=== PATIENT | female | born 1965 | race American Indian/Alaskan Native ===

== ENCOUNTER 2017-01-20 21:06 | Emergency (ER) | payer BC, OTHER ==
[2017-01-20] MEDS ORDERED: Codeine/Promethazine 10-6.25 MG/5 ML Syrup 5 ML UD Cup PO ONE ×2 (21:42→23:34)
[2017-01-20] MEDS ORDERED: Ketorolac 30 MG/ML SDV IM ONE (21:42)
[2017-01-20] MEDS ORDERED: methylPREDNISolone Sodium Succinate 125 MG/2 ML SDV IM ONE (21:42)
[2017-01-20] MEDS ORDERED: Albuterol/Ipratropium 3.0-0.5 MG/3 ML Neb Soln NEB ONE ×2 (21:42→22:39)
--- NOTE | 2017-01-20 21:45 | EDM.PDOC ---
ED HPI GENERAL MEDICAL PROBLEM - General Chief Complaint: ENT Problem Stated Complaint: COUGH, DIFFICULTY BREATHING Time Seen by Provider: 01/20/17 21:43 Source of Information: Reports: Patient History Limitations: Reports: No Limitations - History of Present Illness INITIAL COMMENTS - FREE TEXT/NARRATIVE: Sx since Saturday with cough headache head congestion sinus congestion occ' dizziness. Headache Pain Score (Numeric/FACES): 8 - Related Data Allergies Allergy/AdvReac Type Severity Reaction Status Date / Time Penicillins Allergy Intermediate Hives Verified 01/20/17 21:43 bupropion HCl Allergy Cannot Verified 12/15/15 07:23 [From Wellbutrin] Remember cephalexin Allergy Cannot Verified 01/20/17 21:43 Remember clindamycin Allergy Cannot Verified 01/20/17 21:43 Remember Home Meds: Home Meds Cyclobenzaprine HCl [Cyclobenzaprine HCl] 5 mg PO DAILY 08/07/14 [History] Gabapentin [Neurontin] 300 mg PO DAILY 08/07/14 [History] Ibuprofen [Ibuprofen] 600 mg PO DAILY 10/05/15 [History] Calcium Carbonate/Vitamin D3 [Calcium 600 + Vit D3 800 Tab] 1 tab PO DAILY 12/13 [History] Multivitamin [Multivitamins] 1 each PO DAILY 12/14/15 [History] Cholecalciferol (Vitamin D3) [Vitamin D3] 1 tab PO DAILY 01/20/17 [History] Past Medical History HEENT History: Reports: Impaired Vision Cardiovascular History: Reports: None Respiratory History: Reports: None Gastrointestinal History: Reports: None Other Gastrointestinal History: rectal bleed Genitourinary History: Reports: None [employer] History: Reports: Musculoskeletal History: Reports: Back Pain, Chronic, Other (See Below) Other Musculoskeletal History: DJD Neurological History: Reports: None Psychiatric History: Reports: Addiction Other Psychiatric History: Tobacco habituation Endocrine/Metabolic History: Reports: None Hematologic History: Reports: None Immunologic History: Reports: None Oncologic (Cancer) History: Reports: None Dermatologic History: Reports: None - Infectious Disease History Infectious Disease History: Reports: Chicken Pox - Past Surgical History HEENT Surgical History: Reports: None Cardiovascular Surgical History: Reports: None Female Surgical History: Reports: Hysterectomy Social & Family History - Family History Family Medical History: Noncontributory - Tobacco Use Smoking Status *Q: Current Every Day Smoker Years of Tobacco use: 35 Packs/Tins Daily: 0.5 Second Hand Smoke Exposure: Yes - Alcohol Use Days Per Week of Alcohol Use: 0 - Recreational Drug Use Recreational Drug Use: No - Living Situation & Occupation Living situation: Reports: with Family Occupation: Employed ED ROS ENT - Review of Systems Review Of Systems: ROS reveals no pertinent complaints other than HPI. ED EXAM, ENT - Physical Exam Exam: See Below Exam Limited By: No Limitations General Appearance: Alert, WD/WN, Mild Distress, Other (cough spasms) Eye Exam: Bilateral Eye: PERRL (pupils ess ER @ 4mm) Ears: Hearing Grossly Normal, TM Dullness Nose: Clear Rhinorrhea Mouth/Throat: Normal Inspection, Normal Oropharynx Head: Atraumatic Neck: Non-Tender, Full Range of Motion Respiratory/Chest: No Respiratory Distress, No Accessory Muscle Use, Decreased Breath Sounds, Rales, Rhonchi, Wheezing. No: Accessory Muscle Use, Retractions , Splinting Cardiovascular: Regular Rate, Rhythm GI/Abdominal: Soft, Non-Tender Neurological: Alert, Oriented, Normal Cognition, Normal Gait, No Motor/Sensory Deficits Psychiatric: Tearful Skin: Warm, Dry Lymphatic: No Adenopathy Course - Vital Signs Last Recorded V/S: Last Vital Signs Temp 36.6 C 01/20/17 22:30 Pulse 78 01/20/17 22:30 Resp 16 01/20/17 21:36 BP 120/82 01/20/17 22:30 Pulse Ox 97 01/20/17 21:36 - Orders/Labs/Meds Orders: Active Orders 24 hr Category Date Time Status RT Aerosol Therapy [RC] ASDIRECTED Care 01/20/17 21:43 Active RT Aerosol Therapy [RC] ASDIRECTED Care 01/20/17 22:39 Active Chest 2V [CR] Urgent Exams 01/20/17 22:17 Taken Meds: Medications Discontinued Medications Generic Name Dose Route Start Last Admin Trade Name Freq PRN Reason Stop Dose Admin Albuterol/Ipratropium 3 ml 01/20/17 21:42 01/20/17 21:55 Duoneb 3.0-0.5 Mg/3 Ml NEB 01/20/17 21:43 3 ml ONETIME ONE Administration Albuterol/Ipratropium 3 ml 01/20/17 22:39 Duoneb 3.0-0.5 Mg/3 Ml NEB 01/20/17 22:40 ONETIME ONE Benzonatate 100 mg 01/20/17 22:39 Tessalon Perles PO 01/20/17 22:40 ONETIME ONE Ketorolac Tromethamine 30 mg 01/20/17 21:42 01/20/17 21:51 Toradol IM 01/20/17 21:43 30 mg ONETIME ONE Administration Methylprednisolone Sodium Succinate 125 mg 01/20/17 21:42 01/20/17 21:52 Solu-Medrol IM 01/20/17 21:43 125 mg ONETIME ONE Administration Promethazine HCl/Codeine 5 ml 01/20/17 21:42 01/20/17 21:50 Phenergan With Codeine PO 01/20/17 21:43 5 ml ONETIME ONE Administration - Re-Assessments/Exams Free Text/Narrative Re-Assessment/Exam: 01/20/17 23:11 s/p neb+Rx=much better Departure - Departure Time of Disposition: 23:11 Disposition: Home, Self-Care 01 Condition: good Clinical Impression: Bronchospasm with bronchitis, acute - Discharge Information Instructions: Acute Bronchitis, [id number] Forms: ED Department Discharge Additional Instructions: 1) rest 2) don't sleep flat at night 3) drink lots of liquids 4) use neb 3 times daily for cough and wheeze 5) follow up at clinic or recheck as needed rx given; medrol dospak phenergan codeine syrup qid prn albuterol 2.5mg solution tid prn - My Orders Last 24 Hours: My Active Orders 01/20/17 21:43 RT Aerosol Therapy [RC] ASDIRECTED 01/20/17 22:17 Chest 2V [CR] Urgent 01/20/17 22:39 RT Aerosol Therapy [RC] ASDIRECTED - Assessment/Plan Last 24 Hours: My Active Orders 01/20/17 21:43 RT Aerosol Therapy [RC] ASDIRECTED 01/20/17 22:17 Chest 2V [CR] Urgent 01/20/17 22:39 RT Aerosol Therapy [RC] ASDIRECTED
[2017-01-20] MEDS ORDERED: Benzonatate 100 MG Cap PO ONE (22:39)
[2017-01-20] MEDS ORDERED: Codeine/Promethazine 10-6.25 MG/5 ML Syrup 5 ML UD Cup ONE (23:33)
[2017-01-20] MEDS ORDERED: Albuterol 0.083% 2.5 MG/3 ML Neb Soln ONE (23:34)
[2017-01-20] MEDS ORDERED: Albuterol 0.083% 2.5 MG/3 ML Neb Soln INH ONE (23:34)
[2017-01-20 23:39] VITALS: BP 105/70
== END 2017-01-20 23:58 | disposition home or self-care (01) ==
LOC: DL.ED 21:06
DX: J20.9 Acute bronchitis, unspecified (principal); F17.210 Nicotine dependence, cigarettes, uncomplicated; Z88.8 Allergy status to other drugs, medicaments and biological substances; Z88.0 Allergy status to penicillin; Z79.899 Other long term (current) drug therapy; Z90.710 Acquired absence of both cervix and uterus; Z88.1 Allergy status to other antibiotic agents
CPT/HCPCS: 71020; 94640; 96372; 99285; A9270; J1885; J2930; J7620-GY

== ENCOUNTER 2020-12-10 16:28 | Emergency (ER) | payer BC, OTHER ==
[2020-12-10 16:40] VITALS: BP 121/66; PULSE 86
[2020-12-10] MEDS ORDERED: Aspirin 81 MG Tab.Chew PO ONE (16:52)
--- NOTE | 2020-12-10 16:58 | EDM.PDOC ---
ED HPI GENERAL MEDICAL PROBLEM - General Chief Complaint: Chest Pain Stated Complaint: TIGHTNESS IN CHEST Time Seen by Provider: 12/10/20 17:02 Source of Information: Reports: Patient History Limitations: Reports: No Limitations - History of Present Illness INITIAL COMMENTS - FREE TEXT/NARRATIVE: ED with c/o chest feeling tight and burning today. Saturday vandana ate burger, nausea nad vomiting through Saturday. [place] better , Nausea chills vandana, Some better Saturday and today chest feels tight. Denies vomiting today, No cough. No SOB. No stomach pain. Smoker 1/2 pack per day. no similar episodes. Admits smoking some Cannibis around noon today. Chest Pain Score (Numeric/FACES): 5 - Related Data Allergies Allergy/AdvReac Type Severity Reaction Status Date / Time Penicillins Allergy Intermediate Hives Verified 12/10/20 16:44 bupropion HCl Allergy Cannot Verified 12/10/20 16:44 [From Wellbutrin] Remember cephalexin Allergy Cannot Verified 12/10/20 16:44 Remember clindamycin Allergy Cannot Verified 12/10/20 16:44 Remember duloxetine [From Cymbalta] Allergy Rash Verified 12/10/20 16:44 naproxen Allergy Nausea and Verified 12/10/20 16:44 Vomiting trazodone [From Desyrel] Allergy Cannot Verified 12/10/20 16:44 Remember Home Meds: Home Meds Cyclobenzaprine HCl 5 mg PO ASDIRECTED PRN 08/07/14 [History] Multivitamin [Multivitamins] 1 each PO DAILY 12/14/15 [History] Calcium Carb,Cit/D3/Phytostrol [Citracal D + Heart Health] 1 tab PO DAILY 07/18/20 [History] Ibuprofen 200 mg PO Q6HR PRN 07/18/20 [History] traMADol [Ultram] 50 mg PO Q6HR PRN 07/18/20 [History] Past Medical History HEENT History: Reports: Impaired Vision Other HEENT History: wears glasses Cardiovascular History: Reports: None Respiratory History: Reports: None Gastrointestinal History: Reports: None Other Gastrointestinal History: rectal bleed Genitourinary History: Reports: None [employer] History: Reports: Musculoskeletal History: Reports: Back Pain, Chronic, Other (See Below) Other Musculoskeletal History: DJD Neurological History: Reports: None Psychiatric History: Reports: Addiction Other Psychiatric History: Tobacco habituation Endocrine/Metabolic History: Reports: None Hematologic History: Reports: None Immunologic History: Reports: None Oncologic (Cancer) History: Reports: None Dermatologic History: Reports: None - Infectious Disease History Infectious Disease History: Reports: Chicken Pox - Past Surgical History Head Surgeries/Procedures: Reports: None HEENT Surgical History: Reports: None Cardiovascular Surgical History: Reports: None GI Surgical History: Reports: Colonoscopy Female Surgical History: Reports: Hysterectomy Social & Family History - Family History Family Medical History: No Pertinent Family History - Tobacco Use Tobacco Use Status *Q: Current Every Day Tobacco User Years of Tobacco use: 40 Packs/Tins Daily: 0.5 Second Hand Smoke Exposure: No - Caffeine Use Caffeine Use: Reports: Coffee, Soda, Tea - Recreational Drug Use Recreational Drug Type: Reports: Marijuana/Hashish Other Recreational Drug Type: smoked at noon - Living Situation & Occupation Living situation: Reports: with Family Occupation: Employed ED ROS GENERAL - Review of Systems Review Of Systems: Comprehensive ROS is negative, except as noted in HPI. ED EXAM, GENERAL - Physical Exam Exam: See Below Exam Limited By: No Limitations General Appearance: Alert, No Apparent Distress, Anxious Eye Exam: Bilateral Eye: EOMI Ears: Normal External Exam Nose: Normal Inspection Throat/Mouth: Normal Inspection, Normal Voice, No Airway Compromise Neck: Normal Inspection, Full Range of Motion Respiratory/Chest: No Respiratory Distress, Lungs Clear, Normal Breath Sounds Cardiovascular: Normal Peripheral Pulses, Regular Rate, Rhythm, No Edema GI/Abdominal: Normal Bowel Sounds, Soft, Non-Tender Back Exam: Normal Inspection, Full Range of Motion Neurological: Alert, Oriented, Normal Cognition Psychiatric: Normal Affect, Normal Mood Skin Exam: Warm, Dry, Intact, Normal Color #1 Interpretation EKG Date: 12/10/20 Time: 16:49 Rhythm: NSR Rate (Beats/Min): 80 Foley: Normal P-Wave: Present QRS: Normal ST-T: Normal Comparison: NA - No Prior EKG EKG Interpretation Comments: sinus Course - Vital Signs Last Recorded V/S: Last Vital Signs Temp 98.6 F 12/10/20 16:39 Pulse 86 12/10/20 16:39 Resp 17 12/10/20 16:39 BP 121/66 12/10/20 16:39 Pulse Ox 98 12/10/20 16:39 - Orders/Labs/Meds Orders: Active Orders 24 hr Category Date Time Status EKG 12 Lead [EKG Documentation Completion] [RC] URGENT Care 12/10/20 16:40 Active Labs: Laboratory Tests 12/10/20 12/10/20 12/10/20 Range/Units 17:00 17:00 17:00 WBC 7.6 (5.0-10.0) 10^3/uL RBC 4.09 L (4.2-5.4) 10^6/uL Hgb 12.1 D (12.0-16.0) g/dL Hct 36.5 L (37.0-47.0) % MCV 89.2 (80-100) fL MCH 29.6 (27.0-34.0) pg MCHC 33.2 (33.0-35.0) g/dL Plt Count 201 (150-450) 10^3/uL Neut % (Auto) 61.5 (42.2-75.2) % Lymph % (Auto) 28.9 (20.5-50.1) % [place] % (Auto) 7.9 (2-8) % Eos % (Auto) 1.3 (1.0-3.0) % Baso % (Auto) 0.4 (0.0-1.0) % PT 10.1 (9.0-12.0) SEC INR 1.0 (0.9-1.2) D-Dimer, Quantitative 200 (0-400) ng/mL Sodium 140 (136-145) mmol/L Potassium 3.5 (3.5-5.1) mmol/L Chloride 104 (98-107) mmol/L Carbon Dioxide 29 (21-32) mmol/L Anion Gap 10.5 (7-13) mEq/L BUN 11 (7-18) mg/dL Creatinine 0.79 (0.55-1.02) mg/dL Est Cr Clr Drug Dosing 67.85 mL/min Estimated GFR (MDRD) > 60 BUN/Creatinine Ratio 13.9 (No establ ref range) Glucose 134 H (70-99) mg/dL Calcium 8.4 L (8.5-10.1) mg/dL Magnesium 1.9 (1.8-2.4) mg/dL Total Bilirubin 0.4 (0.2-1.0) mg/dL AST 25 (15-37) U/L ALT 29 (14-59) U/L Alkaline Phosphatase 72 (46-116) U/L Troponin I < 0.017 (0.000-0.056) ng/mL B-Natriuretic Peptide 21 (0-100) pg/ml Total Protein 6.7 (6.4-8.2) g/dL Albumin 3.4 (3.4-5.0) g/dL Globulin 3.3 Albumin/Globulin Ratio 1.0 Amylase 53 (25-115) U/L Lipase 178 (73-393) U/L Meds: Medications Discontinued Medications Generic Name Dose Route Start Last Admin Trade Name Freq PRN Reason Stop Dose Admin Al Hydroxide/Mg Hydroxide 30 ml 12/10/20 17:31 12/10/20 17:37 Gi Cocktail Oral Solution 30 Ml PO 12/10/20 17:32 30 ml ONETIME ONE Administration Aspirin 324 mg 12/10/20 16:52 12/10/20 17:06 Aspirin 81 Mg Tab.Chew PO 12/10/20 16:53 324 mg ONETIME ONE Administration Famotidine 20 mg 12/10/20 17:45 12/10/20 17:51 Famotidine 20 Mg/2 Ml Sdv IVPUSH 12/10/20 17:46 20 mg ONETIME ONE Administration - Re-Assessments/Exams Free Text/Narrative Re-Assessment/Exam: 12/10/20 17:46 pain decrease 2-3/10- following GI cocktail. VSS. Results of lab and xray reviewed with patient. Departure - Departure Time of Disposition: 17:51 Disposition: Home, Self-Care 01 Condition: Good Clinical Impression: Nonspecific chest pain Acid reflux Qualifiers: Esophagitis presence: esophagitis presence not specified Qualified Code(s): K21.9 - Gastro-esophageal reflux disease without esophagitis Instructions: Food Choices for Gastroesophageal Reflux Disease, Adult, Nonspecific Chest Pain, Adult Forms: ED Department Discharge Additional Instructions: bland diet limit caffeine and spicy foods clinic follow up this week urgent follow up chest pain, radiation to neck jaw , sweating and nausea decrease tobacco use Sepsis Event Note (ED) - Evaluation Sepsis Screening Result: No Definite Risk - Focused Exam Vital Signs: Vital Signs Temp Pulse Resp BP Pulse Ox 12/10/20 16:39 98.6 F 86 17 121/66 98 - My Orders Last 24 Hours: My Active Orders 12/10/20 16:40 EKG 12 Lead [EKG Documentation Completion] [RC] URGENT - Assessment/Plan Last 24 Hours: My Active Orders 12/10/20 16:40 EKG 12 Lead [EKG Documentation Completion] [RC] URGENT
--- NOTE | 2020-12-10 17:00 | CR ---
PROCEDURE INFORMATION: Exam: XR Chest Exam date and time: 12/10/2020 4:55 PM Age: 55 years old Clinical indication: Other: Chest pain; Additional info: Chest tightness TECHNIQUE: Imaging protocol: XR of the chest. Views: 1 view. COMPARISON: No relevant prior studies available. FINDINGS: Lungs: Unremarkable. No consolidation. Pleural spaces: Unremarkable. No pleural effusion. No pneumothorax. Heart/Mediastinum: Unremarkable. No cardiomegaly. Bones/joints: Unremarkable. IMPRESSION: No acute findings.
[2020-12-10 17:28] LABS: ANION GAP 10.5 mEq/L (7-13); CHLORIDE,CL 104 mmol/L (98-107); SODIUM,NA 140 mmol/L (136-145)
[2020-12-10] MEDS ORDERED: GI Cocktail Oral Solution 30 ML PO ONE (17:31)
[2020-12-10] MEDS ORDERED: Famotidine 20 MG/2 ML SDV IVPUSH ONE (17:45)
== END 2020-12-10 18:02 | disposition home or self-care (01) ==
LOC: DL.ED 16:28
DX: K21.9 Gastro-esophageal reflux disease without esophagitis (principal); F17.200 Nicotine dependence, unspecified, uncomplicated; Z88.0 Allergy status to penicillin; Z88.8 Allergy status to other drugs, medicaments and biological substances; Z88.1 Allergy status to other antibiotic agents
CPT/HCPCS: 36415; 71045; 80053; 82150; 83690; 83735; 83880; 84484; 85025; 85379; 85610; 93005; 93010; 96374; 99284; 99285-25; A9270-GY; J3490

== ENCOUNTER 2022-08-11 22:17 | Emergency (ER) | payer BC, OTHER ==
[2022-08-11] MEDS ORDERED: Doxycycline Monohydrate 100 MG Cap PO ONE (22:18)
[2022-08-11] MEDS ORDERED: Acetaminophen/HYDROcodone 325-5 MG Tab PO ONE (22:18)
[2022-08-12 00:05] VITALS: BP 127/80; PULSE 87
[2022-08-12] MEDS ORDERED: Doxycycline Monohydrate 100 MG Cap ONE (00:34)
[2022-08-12] MEDS ORDERED: Acetaminophen/HYDROcodone 325-5 MG Tab ONE (00:34)
== END 2022-08-12 00:44 | disposition home or self-care (01) ==
LOC: DL.ED 22:17
DX: K04.7 Periapical abscess without sinus (principal); F17.210 Nicotine dependence, cigarettes, uncomplicated; Z88.0 Allergy status to penicillin; Z88.1 Allergy status to other antibiotic agents; Z88.8 Allergy status to other drugs, medicaments and biological substances
CPT/HCPCS: 99282; A9270-GY

== ENCOUNTER 2025-06-13 15:48 | Emergency (ER) | payer BC, OTHER ==
[2025-06-13] MEDS: fentaNYL 100 MCG/2 ML SDV IM ONE (16:10)
[2025-06-13] MEDS: Lidocaine 1% with EPINEPHrine 1:100,000 20 ML MDV INJECT ONE (16:11)
[2025-06-13] MEDS: Diphtheria,Pertussis(Acell),Tetanus Vaccine 0.5 ML Syringe IM ONE (16:11)
[2025-06-13] MEDS ORDERED: Sodium Chloride 0.9% 10 ML Syringe FLUSH PRN (16:16)
[2025-06-13] MEDS: Ketamine 500 mg/10 ML MDV IV ONE (16:23)
[2025-06-13 18:29] VITALS: BP 136/89; PULSE 67
== END 2025-06-13 18:20 | disposition home or self-care (01) ==
LOC: DL.ED 15:48
DX: S61.042A Puncture wound with foreign body of left thumb without damage to nail, initial encounter (principal); M19.90 Unspecified osteoarthritis, unspecified site; Z23 Encounter for immunization; Z79.899 Other long term (current) drug therapy; Z88.8 Allergy status to other drugs, medicaments and biological substances; Z88.0 Allergy status to penicillin; Z88.1 Allergy status to other antibiotic agents; Z90.710 Acquired absence of both cervix and uterus; W45.0XXA Nail entering through skin, initial encounter
CPT/HCPCS: 73140; 90471; 90715; 96372; 99152; 99153; 99283; A9270; J2004; J3010; J3490